=== PATIENT | female | born 1990 | race Caucasian/White ===

== ENCOUNTER → 2022-11-24 13:24 | Outpatient (BNVA) | payer OTHER, SELFPAY | PROVIDERS: Visit Provider Internal Medicine | DX: S06.9X0A Unspecified intracranial injury without loss of consciousness, initial encounter (principal); W22.8XXA Striking against or struck by other objects, initial encounter | CPT/HCPCS: 70450; 99203 ==

== ENCOUNTER → 2022-11-28 12:58 | Outpatient (BNVA) | payer OTHER, SELFPAY | PROVIDERS: Visit Provider Internal Medicine | DX: S06.9X0A Unspecified intracranial injury without loss of consciousness, initial encounter (principal); W22.8XXA Striking against or struck by other objects, initial encounter; R51.9 Headache, unspecified; H53.143 Visual discomfort, bilateral | CPT/HCPCS: 99213 ==

== ENCOUNTER → 2022-12-02 12:45 | Outpatient (BNVA) | payer OTHER, SELFPAY | PROVIDERS: Visit Provider Internal Medicine | DX: S06.9X0D Unspecified intracranial injury without loss of consciousness, subsequent encounter (principal); W22.8XXD Striking against or struck by other objects, subsequent encounter; R51.9 Headache, unspecified; H53.149 Visual discomfort, unspecified | CPT/HCPCS: 99213 ==